=== PATIENT | male | born 1970 | race Caucasian/White ===

== ENCOUNTER → 2023-07-14 06:27 | Day surgery (SDC) | payer OTHER, SELFPAY | LOC: GI 06:27 | PROVIDERS: ATTENDING PHYSICIAN Internal Medicine | DX: Z12.11 Encounter for screening for malignant neoplasm of colon (principal); K57.30 Diverticulosis of large intestine without perforation or abscess without bleeding; K63.5 Polyp of colon; D12.8 Benign neoplasm of rectum; K64.4 Residual hemorrhoidal skin tags | CPT/HCPCS: 45385; 45380; 88305 ==

== ENCOUNTER → 2023-09-16 06:37 | Day surgery (SDC) | payer OTHER, SELFPAY | LOC: GI 06:37 | PROVIDERS: ATTENDING PHYSICIAN Internal Medicine | DX: R49.0 Dysphonia (principal); K44.9 Diaphragmatic hernia without obstruction or gangrene; K22.89 Other specified disease of esophagus; J02.9 Acute pharyngitis, unspecified; K29.50 Unspecified chronic gastritis without bleeding; K20.80 Other esophagitis without bleeding; Z80.0 Family history of malignant neoplasm of digestive organs | CPT/HCPCS: 43239; 88305; 88342 ==